=== PATIENT | male | born 1945 | race Caucasian/White ===

== ENCOUNTER → 2017-02-25 | Outpatient (CLI) | payer MEDICARE ==
--- NOTE | 2017-02-25 12:18 | CARD ---
APPROVED REPORT EXAM: Two-dimensional and M-mode echocardiogram with Doppler and color Doppler. Other Information Quality : Average Rhythm : Atrial Fibrillation INDICATION Atrial Fibrillation 2D DIMENSIONS RVDd3.2 (2.9-3.5cm)Left Atrium(2D)3.7 (1.6-4.0cm) IVSd1.5 (0.7-1.1cm)Aortic Root(2D)3.4 (2.0-3.7cm) LVDd3.9 (3.9-5.9cm)LVOT Diameter2.1 (1.8-2.4cm) PWd1.5 (0.7-1.1cm)LVDs3.1 (2.5-4.0cm) FS (%) 20.2 %SV27.1 ml LVEF(%)52.0 (>50%) Aortic Valve AoV Peak Kwabena.105.9cm/sAoV VTI20.0cm AO Peak GR.4.5mmHgLVOT Peak Kwabena.75.3cm/s LVOT VTI 16.34cmAO Mean GR.3mmHg PADMINI (VMAX)2.39tz6DWU (VTI)2.74cm2 Mitral Valve MV E Gadjwlfo75.9cm/sMV DECEL LSUP292jb MV GDE68ydPHH (PHT)5.55cm2 TDI E/Lateral E'4.7E/Medial E'10.3 Tricuspid Valve TR P. Ulzpamnh505kq/sRAP JBFRNOPI5qzPc TR Peak Gr.75wyMzMUCY41urLy LEFT VENTRICLE The left ventricle is normal size. There is mild concentric left ventricular hypertrophy. Left ventri marisol systolic function is normal. The Ejection Fraction is 50-55%. There is normal LV segmental wall m otion. Unable to assess diastolic function. There is no ventricular septal defect visualized. RIGHT VENTRICLE The right ventricle is normal size. The right ventricular systolic function is normal. ATRIA The left atrium size is normal. The right atrium size is normal. The interatrial septum is intact wit h no evidence for an atrial septal defect or patent foramen ovale as noted on 2-D or Doppler imaging. AORTIC VALVE The aortic valve is normal in structure and function. The aortic valve is trileaflet. Doppler and Col or Flow revealed no significant aortic regurgitation. There is no significant aortic valvular stenosi s. MITRAL VALVE The mitral valve leaflets are thickened. There is no mitral valve stenosis. Doppler and Color Flow re vealed mild mitral regurgitation. TRICUSPID VALVE The tricuspid valve is normal in structure and function. Doppler and Color Flow revealed trace to mil d tricuspid regurgitation. The PA pressure was estimated at 27 mmHg. There is no tricuspid valve sten osis. PULMONIC VALVE The pulmonic valve is not well visualized. Doppler and Color Flow revealed no pulmonic valvular regur gitation. There is no pulmonic valvular stenosis. GREAT VESSELS The aortic root is normal in size. The ascending aorta is normal in size. Normal pulmonary venous yarelis w (Doppler). The IVC is normal in size and collapses >50% with inspiration. PERICARDIAL EFFUSION There is no evidence of significant pericardial effusion. Critical Notification Critical Value: No <Conclusion> Left ventricle systolic function is normal. The Ejection Fraction is 50-55%. There is normal LV segmental wall motion.
== END | disposition home or self-care (01) ==
LOC: ECHO 07:37
PROVIDERS: ATTEND Internal Medicine Cardiovascular Disease
DX: I08.1 Rheumatic disorders of both mitral and tricuspid valves (principal); I48.91 Unspecified atrial fibrillation
CPT/HCPCS: 93306

== ENCOUNTER → 2019-03-29 | Outpatient (CLI) | payer MEDICARE ==
--- NOTE | 2019-03-29 09:40 | CARD ---
MR#: [id number] Date of Study: 03/29/2019 Ordering Physician: KAYCEE FLANAGAN, Referring Physician: KAYCEE FLANAGAN Tech: Melvi Marte RDCS APPROVED REPORT EXAM: Two-dimensional and M-mode echocardiogram with Doppler and color Doppler. Other Information Quality : GoodHR: 100bpm Rhythm : Atrial Fibrillation INDICATION Atrial Fibrillation 2D DIMENSIONS RVDd3.5 (2.9-3.5cm)Left Atrium(2D)4.5 (1.6-4.0cm) IVSd1.8 (0.7-1.1cm)Aortic Root(2D)3.6 (2.0-3.7cm) LVDd5.0 (3.9-5.9cm)LVOT Diameter2.1 (1.8-2.4cm) PWd1.1 (0.7-1.1cm)LVDs4.3 (2.5-4.0cm) FS (%) 14.0 %SV34.7 ml M-Mode DIMENSIONS Left Atrium(MM)4.18 (2.5-4.0cm)Aortic Root3.59 (2.2-3.7cm) Aortic Valve AoV Peak Kwabena.131.1cm/sAoV VTI17.8cm AO Peak GR.6.9mmHgLVOT Peak Kwabena.76.6cm/s AO Mean GR.3mmHgAVA (VMAX)1.98cm2 PADMINI (VTI)2.96am3LW P 1/2 Fbsz510lc Mitral Valve MV E Btgeoimj50.1cm/sMV E Peak Gr.111mmHg MV DECEL TRAZ686jhRY A Pfitrnms79.2cm/s E/A Ratio2.3 Pulmonary Valve PV Peak Biguvsdf120.9cm/s Tricuspid Valve TR P. Bilbzyzy016mp/sRAP VHREXJLV6jmXg TR Peak Gr.91pxXbWXDE88taKo LEFT VENTRICLE The left ventricle is normal size. There is moderate asymmetric left ventricular hypertrophy. Left ve ntricular function is moderate to severely impaired. The Ejection Fraction is estimated at 30%. There is global hypokinesis of the left ventricle. Transmitral Doppler flow pattern is abnormal. RIGHT VENTRICLE The right ventricle is normal size. There is normal right ventricular wall thickness. Systolic functi on is mildly reduced. ATRIA The left atrium is mild to moderately dilated. The right atrium is mildly dilated. The interatrial se ptum is intact with no evidence for an atrial septal defect or patent foramen ovale as noted on 2-D o r Doppler imaging. AORTIC VALVE The aortic valve is trileaflet. The aortic valve is mildly calcified. Doppler and Color Flow revealed mild aortic regurgitation. There is no significant aortic valvular stenosis. There is no aortic valv ular vegetation. MITRAL VALVE The mitral valve is normal in structure and function. There is no evidence of mitral valve prolapse. There is no mitral valve stenosis. Doppler and Color-flow revealed moderate mitral regurgitation. TRICUSPID VALVE The tricuspid valve is normal in structure and function. Doppler and Color Flow revealed mild tricusp id regurgitation. The PA pressure was estimated at 47 mmHg. There is no tricuspid valve prolapse or v egetation. There is no tricuspid valve stenosis. PULMONIC VALVE The pulmonary valve is normal in structure and function. Doppler and Color Flow revealed mild pulmoni c valvular regurgitation. There is no pulmonic valvular stenosis. GREAT VESSELS The aortic root is normal in size. The ascending aorta is mildly dilated at 4.2cm. The IVC was not vi sualized. PERICARDIAL EFFUSION There is no evidence of significant pericardial effusion. Critical Notification Critical Value: No <Conclusion> The left ventricle is normal size. Left ventricular function is moderate to severely impaired. The Ejection Fraction is estimated at 30%. There is global hypokinesis of the left ventricle. There is no significant aortic valvular stenosis. Doppler and Color Flow revealed mild aortic regurgitation. Doppler and Color-flow revealed moderate mitral regurgitation. Doppler and Color Flow revealed mild tricuspid regurgitation. The PA pressure was estimated at 47 mmHg. Signed by : Andi Davalos MD Electronically Approved : 03/29/2019 09:40:13
== END | disposition home or self-care (01) ==
LOC: ECHO 08:15
PROVIDERS: ATTEND Internal Medicine Cardiovascular Disease
DX: I08.8 Other rheumatic multiple valve diseases (principal); I48.2 Chronic atrial fibrillation
CPT/HCPCS: 93306

== ENCOUNTER 2019-04-24 06:56 | Outpatient (CLI) | payer MEDICARE ==
[~2019-04-24] VITALS: Ht 177.8 cm; Wt 90.7 kg
[2019-04-24] VITALS (9 sets, daily range): BP systolic 110–163; BP diastolic 73–101
[2019-04-24] MEDS ORDERED: FINA5TAB4 PO (07:30)
[2019-04-24] MEDS ORDERED: AMLO5TAB10 PO (07:30)
[2019-04-24] MEDS ORDERED: PRAV40TA2 PO (07:30)
[2019-04-24] MEDS ORDERED: RIVA20TA2 PO (07:30)
[2019-04-24] MEDS ORDERED: METO25TA4 PO (07:30)
[2019-04-24] MEDS ORDERED: OMEG1CAP6 PO (07:30)
[2019-04-24] MEDS ORDERED: MULT1TAB52 PO (07:30)
[2019-04-24] MEDS ORDERED: LISI-130 PO (07:30)
[2019-04-24 07:32] LABS: HEMATOCRIT 47.6 % (39.0-53.0); HEMOGLOBIN 16.5 g/dL (13.0-17.5); RED BLOOD COUNT 5.22 x10^6/uL (4.30-5.70); RED CELL DISTRIBUTION WIDTH 14.2 % (11.5-14.5); WHITE BLOOD COUNT 8.6 x10^3/uL (4.0-11.0)
[2019-04-24] MEDS ORDERED: LIDOCAINE 1% PF 2 ML VIAL. ONE (07:38)
[2019-04-24] MEDS ORDERED: IODIXANOL 320 MG/ML 100 ML VIAL. ONE (07:38)
[2019-04-24 07:41] LABS: PROTHROMBIN TIME PATIENT 14.3 SEC (11.7-14.0)
[2019-04-24 07:44] LABS: CALCIUM 10.4 mg/dL (8.5-10.1); CREATININE 1.3 mg/dL (0.7-1.3); GFR 54.1; POTASSIUM 3.8 mmol/L (3.5-5.1)
[2019-04-24] MEDS ORDERED: VERAPAMIL 5 MG/2 ML VIAL. ONE (09:01)
[2019-04-24] MEDS ORDERED: MIDAZOLAM HCL/PF 2 MG/2 ML VIAL. ONE (09:01)
[2019-04-24] MEDS ORDERED: NITROGLYCERIN 200 MCG/2 ML SYRINGE FOR CATH/VASC LAB. ONE (09:01)
[2019-04-24] MEDS ORDERED: HEPARIN for IV BOLUS 10,000 UNIT/10 ML VIAL. ONE (09:01)
[2019-04-24] MEDS ORDERED: fentaNYL PF VIAL 100 MCG/2 ML VIAL ONE (09:01)
[2019-04-24] MEDS ORDERED: METOPROLOL TARTRATE 5 MG/5 ML VIAL. IVP ONE ×2 (09:20→09:30)
[2019-04-24] MEDS ORDERED: LIDOCAINE 1% Multi-Dose 20 ML VIAL. INJ ONE (09:30)
[2019-04-24] MEDS ORDERED: VERAPAMIL 5 MG/2 ML VIAL. IART ONE (09:30)
[2019-04-24] MEDS ORDERED: HEPARIN for IV BOLUS 10,000 UNIT/10 ML VIAL. IART ONE (09:30)
[2019-04-24] MEDS ORDERED: MIDAZOLAM HCL/PF 2 MG/2 ML VIAL. IV ONE (09:30)
[2019-04-24] MEDS ORDERED: NITROGLYCERIN 200 MCG/2 ML SYRINGE FOR CATH/VASC LAB. IART ONE (09:30)
[2019-04-24] MEDS ORDERED: IODIXANOL 320 MG/ML 100 ML VIAL. IART ONE (09:30)
[2019-04-24] MEDS ORDERED: fentaNYL PF VIAL 100 MCG/2 ML VIAL IV ONE (09:30)
[2019-04-24] MEDS ORDERED: IV 1/2 NORMAL SALINE 1,000 ML IV SCH (09:36)
--- NOTE | 2019-04-24 09:36 | PDOC ---
MODERATE SEDATION ASSESSMENT RISKS/ALTERNATIVES Risks/Alternatives Risks and alternatives of this type of sedation and procedure discussed with: RISK/ALTERNATIVES: Patient H & P ON CHART H & P H & P on chart and reviewed for co-morbid conditions and appropriate labs. H&P ON CHART: Yes STATUS PREG STATUS ASSESSED: N/A MEDS/ALLERGIES REVIEWED Meds/Allergies Reviewed Medications and Allergies including time and route of recently administered narcotics and sedatives. MEDS/ALLERGIES REVIEWED: Yes ASA RATING ASA RATING: III AIRWAY ASSESSMENT Airway Assessment Airway patency, oral function limitations, presence of caps, crowns, dentures, partials, and ability to extend neck assessed. AIRWAY ASSESSMENT: Yes MALLAMPATI SCORE MALLAMPATI SCORE: II PRE-SEDATION ASSESSMENT PRE-SEDATION ASSESSMENT: Yes KAYCEE FLANAGAN MD Apr 24, 2019 09:36
[2019-04-24] MEDS ORDERED: NITROGLYCERIN SUBLINGUAL 0.4 MG BOTTLE OF 25. SL PRN (09:45)
[2019-04-24] MEDS ORDERED: CONTRAST GIVEN. MC PRN (09:45)
--- NOTE | 2019-04-24 09:52 | CARD ---
MR#: [id number] Date of Study: 04/24/2019 Ordering Physician: KAYCEE MANZO, Referring Physician: KAYCEE MANZO, Tech: RT Sanjay (R) APPROVED REPORT Technologist: Irina Earl RT (R) Procedure(s) performed: Left heart catheterization, selective coronary angiography and left ventricul ography via right transradial approach fluoro time: 2.9 min dose: 37 Gycm2 Mod sed: 14 min Contrast: 114ml INDICATION The indication(s) include : Cardiomyopathy. [facility] Clinical Frailty Scale [facility] Clinical Frailty Scale: Managing Well Heart Failure Heart Failure: No PROCEDURE NARRATIVE After explaining the risks, benefits and alternative options, informed consent was obtained from myrna ent. Patient was brought to the cardiac [employer] Members[employer] Sales Agent and right wrist was prepped and draped in the usual fashion after confirming a positive modified Lencho's test. Arterial access was obtained in the [facility] t radial artery and a 6 Tanzanian sheath was inserted. 5 Tanzanian Conrad catheter was used to perform kymberly ective angiography of the left and right coronary arteries. 6 Tanzanian pigtail catheter was used to pe rform left ventriculography. Patient tolerated the procedure well. Hemostasis was achieved using TR band. There were no immediate complications. The following findings were noted. FINDINGS 1. Hemodynamics: Left ventricular end-diastolic pressure of 14 mmHg. No pullback gradient across th e aortic valve. 2. Left ventriculography: Moderate left ventricular systolic dysfunction with ejection fraction marla mated at 30%. No significant mitral regurgitation seen. 3. Coronary angiography: a. The left main coronary artery arose from the left sinus of Valsalva, gave rise to the left anteri or descending and left circumflex arteries and did not show any significant stenosis. b. The left anterior descending artery showed 30% stenosis in the proximal segment and 40% stenosis in the mid to distal segment. The diagonal branch showed 40% stenosis in the proximal segment. c. The left circumflex artery did not show any significant stenosis. d. The right coronary artery was a large and dominant vessel arising from the right sinus of Valsalv a that did not show any significant stenosis. Conclusion 1. Nonobstructive coronary artery disease 2. Moderate left ventricular systolic dysfunction with ejection fraction estimated at 30%. Recommendations Optimization of medical therapy for nonischemic cardiomyopathy and repeat 2-D echo in 3 months to krissy luate the need for AICD implantation Signed by : Kaycee Manzo, Electronically Approved : 04/24/2019 09:51:32
[2019-04-24] MEDS ORDERED: METOPROLOL TART IMMED RELEASE 25 MG TABLET. PO ONE (10:30)
--- NOTE | 2019-04-24 12:45 | NUR ---
Discharge instructions and discharge home medications reviewed with Patient and a copy given. All questions have been answered and understanding verbalized. The following instructions and handouts were given on moderate sedation and radial site care. Discontinued PIV. Patient discharged to home with self care.
== END 2019-04-24 12:52 | disposition home or self-care (01) ==
LOC: CCL 06:56
PROVIDERS: ATTEND Internal Medicine Cardiovascular Disease
DX: I42.9 Cardiomyopathy, unspecified (principal); I10 Essential (primary) hypertension; E78.5 Hyperlipidemia, unspecified; N40.0 Benign prostatic hyperplasia without lower urinary tract symptoms; I48.91 Unspecified atrial fibrillation; R79.89 Other specified abnormal findings of blood chemistry; Z79.82 Long term (current) use of aspirin; Z79.899 Other long term (current) drug therapy; Z98.890 Other specified postprocedural states; Z82.49 Family history of ischemic heart disease and other diseases of the circulatory system; Z80.52 Family history of malignant neoplasm of bladder
CPT/HCPCS: 36415; 80048; 85027; 85610; 93458; C1769; C1892; J1644; J2250; J3010; J3490; Q9967; 99152

== ENCOUNTER 2019-05-26 11:00 | Observation (INO) | payer MEDICARE ==
[~2019-05-26] VITALS: Ht 177.8 cm; Wt 93.0 kg
[~2019-05-26 11:00] MED LIST: AMLO5TAB10 PO; FINA5TAB4 PO; LISI-130 PO; METO25TA4 PO; MULT1TAB52 PO; OMEG1CAP6 PO; PRAV40TA2 PO; RIVA20TA2 PO
[2019-05-26] MEDS ORDERED: LISI-130 PO (11:25)
[2019-05-26] MEDS ORDERED: AMLO5TAB10 PO (11:25)
[2019-05-26] MEDS ORDERED: MULT-690 PO (11:25)
[2019-05-26 11:27] LABS: HEMATOCRIT 50.2 % (39.0-53.0); HEMOGLOBIN 17.3 g/dL (13.0-17.5); RED BLOOD COUNT 5.41 x10^6/uL (4.30-5.70); RED CELL DISTRIBUTION WIDTH 13.4 % (11.5-14.5); WHITE BLOOD COUNT 9.1 x10^3/uL (4.0-11.0)
[2019-05-26] MEDS ORDERED: BACITRACIN 50,000 UNIT in IV NORMAL SALINE 250ML 250 ML IRR ONE (11:30)
--- NOTE | 2019-05-26 11:35 | EKG ---
[facility] [address] [place] [address] Test Date: 2019-05-26 Test Time: 11:32:51 Pat Name: MIRZA MARTINES Department: Room: Gender: M Linen Folder: CAROLYN : 1945 Requested By: KAYCEE FLANAGAN Order Number: [id number] Reading MD: Measurements Intervals [place] Rate: 107 P: NV: QRS: -8 QRSD: 166 T: 141 QT: 374 QTc: 505 Interpretive Statements IRREGULAR RHYTHM, NO P-WAVE FOUND LEFTWARD AXIS NON SPECIFIC INTRAVENTRICULAR BLOCK ABNORMAL ECG RI6.01 Unconfirmed report No previous ECG available for comparison
[2019-05-26 11:36] LABS: PROTHROMBIN TIME PATIENT 13.8 SEC (11.7-14.0)
[2019-05-26 11:40] VITALS: BP 177/116
[2019-05-26 11:52] LABS: CALCIUM 10.8 mg/dL (8.5-10.1); CREATININE 1.3 mg/dL (0.7-1.3); GFR 54.1; POTASSIUM 3.8 mmol/L (3.5-5.1)
[2019-05-26] MEDS ORDERED: PHENYLEPHRINE in 0.9% NACL PF 1 MG/10 ML SYRINGE. IV ONE (12:00)
[2019-05-26] MEDS ORDERED: LIDOCAINE 2%/EPI 1:100,000 20 ML VIAL. ONE ×2 (12:04→12:48)
[2019-05-26] MEDS ORDERED: MIDAZOLAM HCL/PF 2 MG/2 ML VIAL. ONE (12:24)
[2019-05-26] MEDS ORDERED: KETAMINE HCL IN NACL, ISO-OSM 50 MG/5 ML SYRINGE ONE (12:24)
[2019-05-26] MEDS ORDERED: PROPOFOL 20 ML IV ONE (12:25)
[2019-05-26] MEDS ORDERED: PROPOFOL 100 ML IV ONE (12:25)
[2019-05-26] MEDS ORDERED: IOHEXOL 300 MG/ML 100ML VIAL. ONE (12:58)
[2019-05-26] MEDS ORDERED: LIDOCAINE 2%/EPI 1:100,000 20 ML VIAL. IJ ONE (13:15)
[2019-05-26] MEDS ORDERED: IOHEXOL 300 MG/ML 100ML VIAL. IART ONE (14:45)
[2019-05-26] MEDS ORDERED: CONTRAST GIVEN. MC PRN (14:45)
[2019-05-26] MEDS ORDERED: HYDROcodone/APAP 5/325MG 1 TAB TABLET PO PRN (15:15)
[2019-05-26] MEDS ORDERED: NO ANTICOAGULANT THERAPY. MC PRN (15:15)
--- NOTE | 2019-05-26 15:20 | CARD ---
MR#: [id number] Date of Study: 05/26/2019 Ordering Physician: KAYCEE MANZO, Referring Physician: KAYCEE MANZO, Tech: APPROVED REPORT EXAM Successful implantation of [employer]'s biventricular implantable cardioverter defibrillator/cardiac re synchronization therapy-defibrillation (Bi-V ICD/SOLAR TECH-D) with defibrillation thresholds measurement of the time of implantation flouro time 16.3 minutes dose 85.31 Gycm2 Contrast 60 cc's Omnipaque sedation: Anesthesia INDICATIONS Primary prevention of sudden cardiac and cardiac resynchronization therapy in a patient with no nischemic cardiomyopathy, chronic systolic heart failure, prolonged QRS interval, sick sinus syndrome IMPLANTED DEVICES After explaining the risks, benefits and alternative options, informed consent was obtained from myrna ent. Patient was brought to the cardiac Gem Technician and his left chest and shoulder were prepped and brian ped in the usual fashion. 30 mL of 2% lidocaine was infiltrated into the skin and subcutaneous tissue s for local anesthesia. An incision was made over the left infraclavicular fossa and using blunt diss ection and cautery a pocket was created. Venous access was obtained in the left subclavian vein and 1 0 Iranian coronary sinus sheath was inserted. Contrast injections were performed within the right atri um using the CASS2 catheter and the coronary sinus was engaged. The CS sheath was advanced. With the balloontipped catheter inflated in the coronary sinus, a venogram was obtained to identify the approp riate cardiac vein for placement of left ventricular lead. A [employer] Sagar's quadripolar left ventricular lead model Quartet 1456Q serial number [id number] was advanced under fluoroscopy guidance and the tip was positioned in the middle cardiac vein. Venous access was again obtained in the left subclavian vein and 10 and [address] Iranian [address] [employer] Sagar's bipolar active fixation right ventricle lead model Durata 7120Q serial number [id number] w as positioned on the interventricular septum under fluoroscopy guidance. A [employer] Sagar's bipolar active fixation right atrial lead model Tendril STS 2088TC serial number [id number] was then positioned in th e right atrial appendage. The leads were secured into place and attached to a Club W biventricula r ICD/SOLAR TECH-D generator model Quadra Jennyura MP 3369-40Q serial number [id number]. This was placed in the p ocket that was subsequently closed in 3 layers. Hemostasis was secured. Ventricular fibrillation was then induced to check the defibrillation thresholds. Patient successfull y converted to sinus rhythm with a 25 J shock therapy. Patient had baseline atrial fibrillation that actually converted to sinus rhythm as well. The left ventricular lead showed a sensing amplitude of 2 0 mV, impedance of 810 ohms and a threshold of 0.5 V. The right ventricular lead showed a sensing amp litude of 11.7 mV, impedance of 600 ohms and a threshold of 0.75 V. The right atrial lead showed a se nsing amplitude of 3 mV, impedance of 460 ohms and a threshold of 1.0 V. Patient tolerated the proced ure well. There were no immediate complications. CONCLUSION Successful implantation of [employer] Sagar's biventricular ICD/SOLAR TECH-D for primary prevention of sudden cardia c and cardiac resynchronization therapy in a patient with chronic systolic heart failure, prolo nged QRS interval and sick sinus syndrome. Defibrillation thresholds were measured at the time of imp lantation. Signed by : Kaycee Manzo, Electronically Approved : 05/26/2019 15:19:51
[2019-05-26 16:00] VITALS: BP 162/96
[2019-05-26] MEDS: IV NORMAL SALINE 1000ML BAG 1,000 ML IV SCH (16:45)
--- NOTE | 2019-05-26 17:46 | RAD ---
Examination: PORTABLE CHEST 1V History: Pacemaker placement. Comparison/Correlation: None Findings: Frontal view of the chest was obtained. Triple lead left-sided ICD is present. Leads are intact and in place on the bases of the frontal view provided. Heart size and pulmonary vessels are normal. No infiltrate or pleural effusion. No pneumothorax. Bony structures are grossly unremarkable. Impression: Left-sided ICD with associated leads is unremarkable. No suspicious process. Electronically signed by: Arnulfo Wetzel MD (05/26/2019 5:43 PM) [facility]
[2019-05-26] MEDS ORDERED: AMIODARONE 900 MG in IV DEXTROSE 5% 500 ML IV PRN (18:00)
[2019-05-26] MEDS ORDERED: AMIODARONE 150 MG in IV DEXTROSE 5% 100ML 100 ML IV ONE (18:00)
[2019-05-26 19:00] VITALS: BP 145/94
[2019-05-26] MEDS ORDERED: LISINOPRIL 20 MG TABLET PO SCH (21:00)
[2019-05-26] MEDS ORDERED: amLODIPine BESYLATE 5 MG TABLET PO SCH (21:00)
[2019-05-26] MEDS ORDERED: ATORVASTATIN CALCIUM 10 MG TABLET. PO SCH (21:00)
[2019-05-26] MEDS: METOPROLOL TART IMMED RELEASE 25 MG TABLET. PO SCH (21:26)
[2019-05-26 23:00] VITALS: BP 150/92
[2019-05-27 03:00] VITALS: BP 146/94
[2019-05-27] MEDS: IV NORMAL SALINE 1000ML BAG 1,000 ML IV SCH (06:05)
[2019-05-27 07:00] VITALS: BP 164/102
[2019-05-27] MEDS: METOPROLOL TART IMMED RELEASE 25 MG TABLET. PO SCH (08:28)
--- NOTE | 2019-05-27 08:55 | RAD ---
CHEST PA LATERAL History: One day post pacemaker.. COMPARISON: May 26, 2019. FINDINGS: The heart size is not enlarged. Pacemaker defibrillator is again identified. No evidence of pneumothorax, large effusion or consolidating infiltrate. Bones appear grossly intact. IMPRESSION: No consolidating infiltrate Electronically signed by: iMke Ibrahim MD (05/27/2019 8:52 AM) [facility]
[2019-05-27] MEDS ORDERED: FLU VAX QS 2019-20 (36MOS+)/PF 0.5 ML SYRINGE. VAX IM ONE (09:00)
[2019-05-27] MEDS ORDERED: OMEGA-3 FATTY ACIDS/FISH OIL 1,000 MG CAPSULE. PO SCH (09:00)
[2019-05-27] MEDS ORDERED: MULTIVITAMIN I-VITE TABLET. PO SCH (09:00)
[2019-05-27] MEDS ORDERED: FINASTERIDE 5 MG TABLET. PO SCH (09:00)
[2019-05-27 11:00] VITALS: BP 141/95
[2019-05-27] MEDS ORDERED: AMIO200T4 PO (14:03)
[2019-05-27 14:59] VITALS: BP 142/90
--- NOTE | 2019-05-27 15:30 | NUR ---
Discharge Note: MIRZA MARTINES Discharge instructions and discharge home medications reviewed with Patient and a copy given. All questions have been answered and understanding verbalized. Prescription for Amiodarone given to patient. Immobilizer in place upon discharge. The following instructions and handouts were given: Post pacemaker discharge instructions Discontinued lines and drains: Peripheral IV intact. Patient discharged to Home or Self Care with Family Member via Ambulated
[2019-05-27] MEDS ORDERED: AMIODARONE HCL 200 MG TABLET. PO SCH (16:00)
--- NOTE | 2019-05-29 09:47 | PDOC3 ---
Discharge Summary Visit Information Date of Admission: May 26, 2019 Date of Discharge: May 27, 2019 Admitting Diagnosis Comment: Nonischemic cardiomyopathy. Final Diagnosis Non-ischemic cardiomyopathy Brief Hospital Course Allergies Allergies Coded Allergies Type Severity Reaction Last Updated Verified No Known Drug Allergies 04/24/19 No Brief Hospital Course Patient is a 73-year-old male with a history of a nonischemic cardiomyopathy. Catheterization on 04/24/19 showed no significant coronary artery disease. The patient underwent the successful implantation of a [employer] Sagar's BiV ICD/BROODMARE BARN GROOM on 05/26/2019. He remained stable overnight. Postprocedure and next morning chest x-rays showed no complications. Interrogation of the device on 05/27/19 showed normal function. The patient had no complications overnight. He was allowed to go home on 05/27/19 in stable condition. He will be continuing his present home medications including amiodarone 200 mg by mouth daily. Follow-up will be as per routine. Assessment Assessment Successful implantation of a [employer] Sagar's BiV ICD/BROODMARE BARN GROOM-D for nonischemic cardiomyopathy. Discharge Information Condition at Discharge: Improved Follow Up: Weeks Disposition/Orders: D/C to Home Scheduled Amiodarone Hcl (Amiodarone Hcl) 200 Mg Tablet, 1 TAB PO DAILY for , #30 Ref 5 (Reported) Entered as Reported by: CHARLES SAENZ RN on 05/27/19 1403 Amlodipine Besylate (Amlodipine Besylate) 5 Mg Tablet, 5 MG PO HS for HTN, (Reported) Entered as Reported by: REUBEN CUMMINGS on 05/26/19 1125 Last Taken: Unknown Dose on 05/25/19 Last Action: Continued on 05/26/191711 by Codey Awad Finasteride (Finasteride) 5 Mg Tablet, 1 TAB PO DAILY for urinary retention, #30 Ref 11 (Reported) Entered as Reported by: ARAMIS UREÑA on 04/24/19 0730 Last Taken: Unknown Dose on 05/25/19 Last Action: Continued on 05/26/191711 by Codey Awad Lisinopril (Lisinopril) 40 Mg Tablet, 1 TAB PO HS for HTN, #30 Ref 5 (Reported) Entered as Reported by: REUBEN CUMMINGS on 05/26/19 1125 Last Taken: Unknown Dose on 05/25/19 Last Action: Continued on 05/26/191711 [facility] Metoprolol Tartrate (Metoprolol Tartrate) 25 Mg Tablet, 1 TAB PO BID for heart rate, #180 Ref 1 (Reported) Entered as Reported by: ARAMIS UREÑA on 04/24/19729 Last Taken: Unknown Dose on 05/26/19 Last Action: Continued on 05/26/191711 by [facility] Multivit-Min/FA/Lycopen/Lutein (Centrum Silver Men Tablet) 1 Each Tablet, 1 EACH PO DAILY for supplement, (Reported) Entered as Reported by: REUBEN CUMMINGS on 05/26/191124 Last Taken: Unknown Dose on 05/26/19 Last Action: Converted on 05/26/191711 by Codey Ritesh [place]-3 Fatty Acids/Fish Oil (Fish Oil 1,000 Mg Capsule) 1 Each Capsule, 1 EACH PO DAILY for supplement, (Reported) Entered as Reported by: ARAMIS UREÑA on 04/24/19729 Last Taken: Unknown Dose on 05/26/19 Last Action: Continued on 05/26/191711 by [facility] Pravastatin Sodium (Pravastatin Sodium) 40 Mg Tablet, 1 TAB PO QHS for cholesterol, #90 Ref 1 (Reported) Entered as Reported by: ARAMIS UREÑA on 04/24/19729 Last Taken: Unknown Dose on 05/25/19 Last Action: Converted on 05/26/191711 by [facility] Rivaroxaban (Xarelto) 20 Mg Tablet, 20 MG PO DAILY for blood thinner, (Reported) Entered as Reported by: ARAMIS UREÑA on 04/24/19729 Last Taken: Unknown Dose on 05/23/19 Last Action: Reviewed on 05/26/191124 by REUBEN CUMMINGS Discontinued Medications Amlodipine Besylate (Amlodipine Besylate) 5 Mg Tablet, 5 MG PO DAILY for blood pressure, (Reported) Entered as Reported by: ARAMIS UREÑA on 04/24/19729 Last Action: Discontinued on 05/26/191124 by REUBEN CUMMINGS Multivitamin (Multivitamins) 1 Each Tablet, 1 TAB PO DAILY for supplement, #90 Ref 3 (Reported) Entered as Reported by: ARAMIS UREÑA on 04/24/19729 Last Action: Discontinued on 05/26/191124 by REUBEN CUMMINGS Patient Instructions Patient Instructions 1. Continue present medications. 2. Routine ICD care. 3. The patient be contacted for routine office follow-up and a wound check. ESCOBAR PEREZ MD May 29, 2019 09:47
== END 2019-05-27 16:21 | disposition home or self-care (01) ==
LOC: SURG 11:00 → 2 NORTH 12:06
PROVIDERS: ADMIT Internal Medicine Cardiovascular Disease; ATTEND Internal Medicine Cardiovascular Disease
DX: I48.21 Permanent atrial fibrillation (principal); I42.8 Other cardiomyopathies; R55 Syncope and collapse; I10 Essential (primary) hypertension; E78.5 Hyperlipidemia, unspecified; N40.0 Benign prostatic hyperplasia without lower urinary tract symptoms; Z90.49 Acquired absence of other specified parts of digestive tract; Z23 Encounter for immunization
CPT/HCPCS: 33225; 33249; 36415; 71045; 71046; 80048; 85027; 85610; 85730; 90471; 90686; 93005; 93566; 93641; 96365; 96375; C1769; C1882; C1895; C1898; C1900; G0378; G0379; J0282; J0696; J2250; J2370; J2704; J3490; J7050; Q9967; J7030

== ENCOUNTER → 2020-08-14 | Outpatient (CLI) | payer MEDICARE ==
[~2020-08-14] MED LIST changes: +AMIO200T6 PO; +AMLO-186 PO; -AMLO5TAB10 PO; +IOHEXOL 300 MG/ML 100ML VIAL. IV ONE; +MULT-445 PO; +MULT-690 PO; -MULT1TAB52 PO
[2020-08-14 12:12] LABS: CREATININE 1.4 mg/dL (0.7-1.3); GFR 49.4
--- NOTE | 2020-08-15 05:42 | RAD ---
PQRS Compliance Statement: One or more of the following individualized dose reduction techniques were utilized for this examinat ion: 1. Automated exposure control 2. Adjustment of the mA and/or kV according to patient size 3. Use of iterative reconstruction technique CT ABDOMEN+PELVIS WO+W Clinical Indication: Reason: gross hematuria Comparison: None. TECHNIQUE: Helical CT imaging of the abdomen and pelvis is performed without IV contrast. Helical CT imaging of the abdomen is performed after 75 cc Omnipaque 300 IV contrast during nephrographic phase. Helical CT imaging of the abdomen and pelvis is performed during delay phase. Findings: Contrast opacification of solid organs is suboptimal without obvious explanation. Cardiac pacer wires. Cardiac size is normal. There is a 4 mm nodule in the subpleural right middle lo be that is increased in density but not definitely calcified. There are couple of tiny calcified gran ulomas in the lung bases. In the upper pole of the right kidney protruding into renal sinus fat there is a heterogeneous solid enhancing mass measuring 3 cm AP by 2.3 cm transverse by 2.9 cm craniocaudal. Partially exophytic fro m the upper pole of the left kidney there is a similar solid mildly heterogeneous mass measuring 3.1 cm AP by 3.1 cm transverse by 2.5 cm craniocaudal. Genetic disorder could be considered but is felt n ot likely given patient age. However correlate for any family history. There is no hydronephrosis or renal calculus. 4 mm hypodensity in the central right hepatic lobe is too small to further characterize, image 15 of series 4. Similar hypodensity in 4A seen on image 4. The gallbladder, spleen, and pancreas are normal . There is a 1.3 cm left adrenal nodule that measures 0 Hounsfield units on the precontrast images co mpatible with an adenoma. The right adrenal gland is normal. Severe atherosclerotic calcification of the infrarenal abdominal aorta. No aneurysm. The stomach is unremarkable. Small fat-containing umbilical hernia. No dilated small bowel is seen. T here is moderate sigmoid colon diverticulosis. Appendix is not identified, no secondary signs of appe ndicitis. There is no colon wall thickening. No abdominal adenopathy or free fluid. The urinary bladder is without wall thickening. Prostate is upper limits of normal in size and the pr ostate mildly protrudes into the base of the bladder. There is no pelvic free fluid. Ureters are most ly contrast opacified and are without focal abnormality. No acute bone abnormality. IMPRESSION: 1. There is a heterogeneous solid enhancing mass in the upper pole of the right kidney. There is a h eterogeneous solid enhancing mass partially exophytic from the upper pole of the left kidney. Diagnos is is bilateral renal cell carcinoma until proven otherwise. 2. Small left adrenal adenoma. 3. Moderate sigmoid colon diverticulosis. 4. There are 2 tiny hypodensities in the liver that are too small to further characterize. Electronically signed by: Anthony Marques MD (08/15/2020 5:40 AM) [facility]
== END ==
LOC: CT 14:58
PROVIDERS: ATTEND Urology
DX: D35.02 Benign neoplasm of left adrenal gland (principal); R31.9 Hematuria, unspecified; J98.4 Other disorders of lung; J84.10 Pulmonary fibrosis, unspecified; K42.9 Umbilical hernia without obstruction or gangrene; K57.30 Diverticulosis of large intestine without perforation or abscess without bleeding; N28.89 Other specified disorders of kidney and ureter
CPT/HCPCS: 36415; 74178; 82565; Q9967

== ENCOUNTER → 2021-02-25 | Outpatient (CLI) | payer MEDICARE ==
[2020-08-29 10:36] VITALS: BP 152/83
[~2021-02-25] MED LIST changes: +CHOL500021 PO; +DICY10CA3 PO; +IOHEXOL 240 MG/ML 50ML VIAL. PO ONE; +LOSA100T14 PO; +METO-247 PO; +MEXI200C PO; +SACU1TAB7 PO; +TAMS0.4C97 PO
[2021-02-25 10:01] LABS: CREATININE 1.6 mg/dL (0.7-1.3); GFR 42.3
--- NOTE | 2021-02-25 13:24 | RAD ---
EXAM: CT ABDOMEN/PELVIS WITH AND WITHOUT CONTRAST. HISTORY: Bilateral renal masses. TECHNIQUE: Computed tomography of the abdomen and pelvis was performed before and after the intraveno us administration of iodinated contrast. One or more of the following individualized dose reduction t echniques were utilized for this examination: 1. Automated exposure control. 2. Adjustment of the mA and/or kV according to patient size. 3. Use of iterative reconstruction technique. COMPARISON: 08/14/2020. FINDINGS: Lung windows through the visualized portions of the bases reveal mild atelectasis. [place] r leads are partially visualized. Bone windows reveal no suspicious lesions. An enhancing solid mass at the right renal upper pole measures 3.0 x 2.5 cm, unchanged. Another at th e left upper pole measures 2.5 x 2.4 cm, also unchanged. A nonenhancing 8 mm lesion in the right inte rpolar region is likely a benign cyst. There are no renal or ureteral calculi. There are no clear uro thelial lesions. There are no pathologically enlarged lymph nodes. The prostate is mildly to moderately enlarged for patient age. There are no focal bladder lesions. Si gmoid diverticulosis is mild. There is no evidence of appendicitis. A small umbilical hernia contains only fat. There is no small bowel obstruction. A tiny hypoattenuating lesion in hepatic segment 8 is likely a benign cyst or hemangioma and is stabl e. The gallbladder and pancreas are unremarkable. There is a calcified granuloma in the spleen. A 14 x 12 mm nodule in the left adrenal gland measures 15 Hounsfield units. This is indeterminate by CT cr iteria but most likely reflects a benign adenoma. It appears stable. IMPRESSION: 1. Bilateral solid enhancing masses at the renal upper poles are concerning for renal cell carcinoma. There is no interval change. Ongoing follow-up is recommended. 2. A 14 mm left adrenal nodule appears stable and is most likely a benign adenoma. 3. Small umbilical hernia containing only fat. Electronically signed by: Giancarlo Bender MD (02/25/2021 1:21 PM) [id number]
== END ==
LOC: CT 08:49
PROVIDERS: ATTEND Urology
DX: D41.01 Neoplasm of uncertain behavior of right kidney (principal); D41.02 Neoplasm of uncertain behavior of left kidney; R31.0 Gross hematuria; N28.89 Other specified disorders of kidney and ureter; N40.0 Benign prostatic hyperplasia without lower urinary tract symptoms; K57.30 Diverticulosis of large intestine without perforation or abscess without bleeding; K42.9 Umbilical hernia without obstruction or gangrene; J98.11 Atelectasis; E27.8 Other specified disorders of adrenal gland
CPT/HCPCS: 36415; 74178; 82565; 84520; Q9966; Q9967